=== PATIENT | female | born 1985 | race Caucasian/White ===

== ENCOUNTER 2023-10-22 11:38 | Outpatient (AMB) | payer OTHER, SELFPAY ==
[2023-10-22 12:28] VITALS: BP 126/80; PULSE 94; TEMP 36.3; O2SAT 99; BMI 46.9
--- NOTE | 2023-10-22 12:28 | MHC.OFFWIV ---
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 Pt also reports Sinus pressure and congestion for 3 weeks now. She was given Amoxicillin then and she completed 10 day course. Pt reports that symptoms never got better. Denies fevers, chills, nausea or vomiting. Pt does have Seasonal allergies and she has been taking Claritin with no relief. [facility], [facility] Social History Patient Tobacco Use Status: Never used Tobacco Review of Systems Const All systems reviewed & are unremarkable except as noted in HPI and below Physical Exam Vital Signs: Last Vital Signs Temp 97.4 F 10/22/23 12:28 Pulse 94 10/22/23 12:28 BP 126/80 10/22/23 12:28 Pulse Ox 99 10/22/23 12:28 Oxygen Delivery Method Room Air 10/22/23 12:28 BMI result Body Mass Index 46.9 Const General: comfortable and no acute distress Orientation/consciousness: patient oriented x3 HEENT Head: Yes normocephalic Ears: external ears normal and TM abnormal bulging on the left, erythematous on the left and retracted on the left General nose exam: Abnormal mucous membranes and turbinates present boggy bilateral and erythematous bilateral Face and sinus: Yes sinuses nontender Mouth: moist mucous membranes Throat: Yes posterior oropharynx normal Resp Effort & Inspection: normal respiratory effort and able to speak in complete sentences Auscultation: clear to auscultation bilaterally, no crackles, no rales, no rhonchi and no wheezes Cardio Rate: regular rate Rhythm: regular rhythm Neuro General: patient oriented x3, gait normal and moves all extremities Psych Speech and movement: Normal speech and movement present Assessment & Plan Assessment & Plan (1) Acute rhinosinusitis: Code(s): J01.90 - Acute sinusitis, unspecified Plan: - OTC sinus relief remedies (2) Allergic rhinitis: Code(s): J30.9 - Allergic rhinitis, unspecified Qualifiers: Allergic rhinitis trigger: pollen Allergic rhinitis seasonality: seasonal Qualified Code(s): J30.1 - Allergic rhinitis due to pollen Plan: - Take medications as directed. (3) Otitis media of left ear: Code(s): H66.92 - Otitis media, unspecified, left ear Qualifiers: Otitis media type: suppurative Chronicity: acute Recurrence: non-recurrent Spontaneous tympanic membrane rupture: without spontaneous rupture Qualified Code(s): H66.002 - Acute suppurative otitis media without spontaneous rupture of ear drum, left ear Plan: - Take medication as directed - Acetaminophen for relief. Medications: New amoxicillin-pot clavulanate 875-125 mg 1 tab PO Q12H 20 tabs 0RF 10 days H66.002 - Acute suppurative otitis media without spontaneous rupture of ear drum, left ear acetaminophen 1,000 mg (2 x 500 mg) PO Q6H PRN 30 caps 0RF pain (scale score 7-10) H66.002 - Acute suppurative otitis media without spontaneous rupture of ear drum, left ear fluticasone propionate 50 mcg/actuation (Flonase Allergy Relief) administer into each nostril 1 spray intranasal BID 16 grams 0RF J30.1 - Allergic rhinitis due to pollen cetirizine (Zyrtec) 10 mg PO DAILY PRN 30 tabs 0RF allergy symptoms J30.1 - Allergic rhinitis due to pollen Coding Level of Care Code New Pt Level 4 (04454) Diagnoses Acute rhinosinusitis J01.90 Seasonal allergic rhinitis due to pollen J30.1 Allergic rhinitis trigger: pollen Allergic rhinitis seasonality: seasonal Non-recurrent acute suppurative otitis media of left ear without spontaneous rupture of tympanic membrane H66.002 Otitis media type: suppurative Chronicity: acute Recurrence: non-recurrent Spontaneous tympanic membrane rupture: without spontaneous rupture Time Spent (min) 15
== END 2023-10-22 14:51 | disposition home or self-care (01) ==
PROVIDERS: PCP Internal Medicine; Visit Provider Nurse Practitioner Family
DX: J01.90 Acute sinusitis, unspecified (principal); J30.1 Allergic rhinitis due to pollen; H66.002 Acute suppurative otitis media without spontaneous rupture of ear drum, left ear
CPT/HCPCS: 99204

== ENCOUNTER 2024-08-23 12:50 | Outpatient (AMB) | payer OTHER, SELFPAY ==
[2024-08-23 13:12] VITALS: BP 100/60; BMI 47.6
--- NOTE | 2024-08-23 13:12 | MHC.OFFVIS ---
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 She lives now in [place] but she used to live in [place] so her primary care provider isn't [facility] part of the [employer] system. 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 She has 4 children her daughter came 1st then an ectopic and then her 3 sons. All delivered vaginally at [facility] with Dr. Lawson and Dr. Arredondo. She chose the ParaGard IUD because it lasted longer than the Mirena. She was just very clear she did not want to have anymore babies she just wants to be done with worrying about . The ParaGard has worked well for her her periods got a little heavier but they also got shorter she does not perceive it as too much bleeding or anything. She says it has been about 8 years since she has had an exam she had this IUD inserted about a couple of months after her last child was born so around 8 years. [facility] Social History (Reviewed 08/23/24 @ 13:14 by Brandi Zapien [facility]) Patient Tobacco Use Status: Never used Tobacco Female Reproductive History Menstrual Age of Menarche: 14 Date of last menstrual period: 08/22/24 control method: none Total pregnancies: 5 Full term: 4 History of abnormal pap smear: No (2016,neg.per patient) Physical Exam Vital Signs: Last Vital Signs BP 100/60 08/23/24 13:12 BMI result Body Mass Index 47.6 Assessment & Plan Assessment & Plan (1) control counseling: Code(s): Z30.09 - Encounter for other general counseling and advice on contraception Category: Medical Plan Patient is here is a new patient. 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 She lives now in [place] but she used to live in [place] so her primary care provider isn't [facility] part of the [employer] system. 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 She has 4 children her daughter came 1st then an ectopic and then her 3 sons. All delivered vaginally at [facility] with Dr. Lawson and Dr. Arredondo. She chose the ParaGard IUD because it lasted longer than the Mirena. She was just very clear she did not want to have anymore babies she just wants to be done with worrying about . The ParaGard has worked well for her her periods got a little heavier but they also got shorter she does not perceive it as too much bleeding or anything. She says it has been about 8 years since she has had an exam she had this IUD inserted about a couple of months after her last child was born so around 8 years. Discussed her history discussed all the things that would be important to check in her health at this time including her CBC to make sure she is not anemic before considering exactly which IUD with serve her better. I did teaching around the ParaGard IUD versus the Mirena IU S. she has been very happy with the ParaGard and would have no reason to change it but she just wanted to be sure she did not wait too long. She intends to call her primary is office and then get her fasting blood work it has been hard to do with her shifts of work because she picks up extra shifts so her clients wound have a stranger. She is now starting to pay attention to her own healthcare needs. Her children go to [facility] and also [facility]. Discussed that it would be beneficial to her to go over her lab results with her primary or a promotions representative from her primary care provider when the results are in. Discussed that we will schedule a environmental program manager annual exam and go over her lab results which she hopefully will have access to by then and then plan for switching of the IUD at the appropriate time. She may have more time on it then she realizes. Patient to get her primary care labs done soon She will bring a copy to next visit to review CBC etc. RTC soon for full environmental program manager annual and testing Coding Level of Care Code Tele New Pt Level 3 (68636) Diagnoses control counseling Z30.09 Time Spent (min) 25 Comment Teaching and discussion about IUD differences and screening for other health concerns befo
== END 2024-08-23 13:54 | disposition home or self-care (01) ==
PROVIDERS: PCP Internal Medicine; Visit Provider Advanced Practice Midwife
DX: Z30.09 Encounter for other general counseling and advice on contraception (principal)
CPT/HCPCS: 99203

== ENCOUNTER → 2024-08-23 12:50 | Outpatient (BNVA) | payer OTHER, SELFPAY | PROVIDERS: PCP Internal Medicine; Visit Provider Advanced Practice Midwife | DX: Z30.09 Encounter for other general counseling and advice on contraception (principal) | CPT/HCPCS: 99202 ==

== ENCOUNTER 2024-09-27 14:55 | Outpatient (REF) | payer MEDICAID, SELFPAY ==
[2024-09-28 17:34] LABS: Bacterial Vaginosis PCR NEGATIVE (Negative); Candida Group PCR NOT DETECTED (Not Detect); Candida glab krusei PCR NOT DETECTED (Not Detect); Trichomonas vaginalis PCR NOT DETECTED (Not Detect)
[2024-09-28 18:04] LABS: CT PCR NOT DETECTED (Not Detect.); NG PCR NOT DETECTED (Not Detect.)
== END 2024-09-27 14:56 | disposition home or self-care (01) ==
LOC: HO.LAB 14:55
PROVIDERS: PCP Internal Medicine; Visit Provider Advanced Practice Midwife
DX: Z01.419 Encounter for gynecological examination (general) (routine) without abnormal findings (principal); N89.8 Other specified noninflammatory disorders of vagina; Z20.2 Contact with and (suspected) exposure to infections with a predominantly sexual mode of transmission
CPT/HCPCS: 81515; 87491; 87591; 99395; 99459

== ENCOUNTER 2024-09-27 14:55 | Outpatient (AMB) | payer OTHER, SELFPAY ==
[2024-09-27 15:10] VITALS: BMI 47.6
--- NOTE | 2024-09-27 15:10 | MHC.OFFVIS ---
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 She has the ParaGard IUD gets regular periods and she likes ParaGard. It was inserted a couple of months after the of her last child who is 8[birth year]07/28 and will turn 11 in February so it was probably inserted either end of March beginning of April of that year a did review that it is good for 10 years periods so she has more time on it now. She is still trying to get a find primary care provider. She has called but has not gotten call backs from various places. She is also looking for a dentist she had seen a dentist and had been told that her teeth would not last more than 7 years and that was the last time she was seen. She knows that are broken then have a lot of cavities from the years when she was drinking more soda. She has cut soda out completely. she is starting on a plan to lose weight along with her mother her mother is heavier than she would like to be and the 2 of them are going to go to the gym together the only time that they think they will be able to do it is around dinner time when the children can be looked after. She has plans to do meal prep and bring something like a protein shake to eat as her 1st meal during the day and pack snacks like nuts that she can eat in the car when she is bringing children back and forth. She is planning to have the same protein that she prepares for the kids and a salad. She recently had some blood work done it a provider from her previous primary care provider and she brought the blood work with her the only thing elevated was triglycerides. Everything else was within normal limits including fasting glucose and the other cholesterol labs and TSH.. [facility] Social History (Reviewed 09/27/24 @ 15:12 by Brandi Zapien [facility]) Patient Tobacco Use Status: Never used Tobacco Female Reproductive History Menstrual Age of Menarche: 14 Duration of menses: 3-5 days Date of last menstrual period: 09/24/24 control method: copper IUCD Total pregnancies: 5 Full term: 4 History of abnormal pap smear: No (2016,negative per patient) Physical Exam Vital Signs: BMI result Body Mass Index 47.6 Const Other: Gums slightly reddened some dental caries noted. General: healthy appearing, comfortable, no acute distress, well developed and alert Nutritional Appearance: average body habitus and obese Orientation/consciousness: patient oriented x3 Limitations: no limitations HEENT Head: Yes normocephalic Neck Neck: Yes normal visual inspection Chest Chest palpation & inspection: normal inspection of the chest Breast/axilla inspection: normal inspection of the breasts and normal inspection of the axillae Breast/axilla palpation: normal palpation of the breasts and normal palpation of the axillae Resp Effort & Inspection: normal respiratory effort GI Inspection: Yes normal to inspection, No Abdominal wall edema and No distended Palpation (GI): Soft to palpation and nontender Other: Normal external exam. Vagina pink and moist scant end of menses evident cervix appears pink smooth healthy appearing nulliparous? with ParaGard strings about 2-1/2 cm sticking out of a. Cervix long close thick mobile nontender unable to feel uterus secondary to habitus but it is mobile and nontender adnexa nontender good tone with Kegel. General: Yes bladder normal to palpation External Female Exam: normal external appearance and normal appearance of the urethra Speculum Exam - Vagina: normal appearance of the vagina, normal palpation and normal vaginal discharge Speculum Exam - Cervix: normal appearance of the cervix, normal palpation and nontender Bimanual exam- vagina & uterus: normal bimanual exam, normal palpation, uterine size normal, bladder normal to palpation, consistency normal, normal palpation, uterine mobility normal, uterine shape normal, No Cervical tenderness present, non-tender and no cervical motion tenderness Bimanual Exam- Adnexa, other: normal adnexae, no masses, normal and No adnexal tenderness Neuro General: patient oriented x3 Assessment & Plan Assessment & Plan (1) control counseling: Code(s): Z30.09 - Encounter for other general counseling and advice on contraception Category: Medical (2) Well woman exam with routine gynecological exam: Code(s): Z01.419 - Encounter for gynecological examination (general) (routine) without abnormal findings Category: Medical (3) Cervical cancer screening: Code(s): Z12.4 - Encounter for screening for malignant neoplasm of cervix Category: Medical (4) IUD (intrauterine device) in place: Comment: inserted prob 6-8w p (03/05/16)of last child 2015; due for replacement approx mar 2026. Code(s): Z97.5 - Presence of (intrauterine) contraceptive device Category: Medical (5) Obesity, morbid, BMI 40.0-49.9: Code(s): E66.01 - Morbid (severe) obesity due to excess calories Category: Medical (6) Dental caries: Code(s): K02.9 - Dental caries, unspecified Category: Medical Plan -----Discussed in this visit the following: healthy balanced diet, regular and consistent exercise, getting recommended health screens, doing the best she can for her particular health concerns, kegel exercises, pap smear screening and followup recommendations, mammography screening and SBE, normal changes in cycles in her life stage--- . Reviewed the ParaGard IUD to be good till probably around March of 2026 next year. Reviewed her plans for trying to lose weight this time she and her mother are going to start going to the gym next week and they have made a plan and she has made a plan for how she is going to prep her meals and carries next like nuts and protein shakes for during the day and have protein that she was for the kids for dinner and the salad. I also recommend she consider prioritizing sleep and she has been trying to do that already. She has a very busy morning routine with getting the kids ready for school and just getting 1 cup of coffee in the morning Reviewed her plans for continuing to try to find a new primary care provider she is going to call again. Reviewed dental care she knows that she needs dental care and she was told that she will need dentures. Discussed that she should make sure that she gets good opinions before she has her teeth pulled and if there something that can be done to repair them to consider that 1st. She thinks most of the damage from was from when she was drinking a lot of soda and she has cut that are completely. Congratulated on all that she is doing so far and I wished her well with her renewed efforts to start next week. RTC 1 yr Orders: Orders Bacterial Vaginosis Panel Today N89.8 - Other specified noninflammatory disorders of vagina Pap Smear Today Z00.00 - Encounter for general adult medical examination without abnormal findings CT NG by PCR Today N89.8 - Other specified noninflammatory disorders of vagina, Z20.2 - Contact with and (suspected) exposure to infections with a predominantly sexual mode of transmission Coding Level of Care Code Est Pt Prev Care 18-39y([id number]) Diagnoses control counseling Z30.09 Well woman exam with routine gynecological exam Z01.419 Cervical cancer screening Z12.4 IUD (intrauterine device) in place Z97.5 Obesity, morbid, BMI 40.0-49.9 E66.01 Dental caries K02.9
== END 2024-09-27 16:34 | disposition home or self-care (01) ==
PROVIDERS: PCP Internal Medicine; Visit Provider Advanced Practice Midwife
DX: Z01.419 Encounter for gynecological examination (general) (routine) without abnormal findings (principal); E66.01 Morbid (severe) obesity due to excess calories
CPT/HCPCS: 99395; 99459

== ENCOUNTER 2024-09-27 16:16 | Outpatient (REF) | payer MEDICAID, SELFPAY ==
[2024-09-30 14:51] LABS: HPV Genotype 16 Negative (Negative); HPV Genotype 18 Positive (Negative); HPV High Risk Positive (Negative)
== END 2024-09-27 16:17 | disposition home or self-care (01) ==
LOC: HO.LNP 16:16
PROVIDERS: Visit Provider Advanced Practice Midwife
DX: Z00.00 Encounter for general adult medical examination without abnormal findings (principal); N89.8 Other specified noninflammatory disorders of vagina; Z20.2 Contact with and (suspected) exposure to infections with a predominantly sexual mode of transmission
CPT/HCPCS: 87626; 88175